=== PATIENT | female | born 1945 | race Caucasian/White ===

== ENCOUNTER 2018-06-27 12:11 | Inpatient (IN) | payer SELFPAY ==
[~2018-06-27] VITALS: Ht 147.3 cm; Wt 49.9 kg
[2018-06-27 12:19] VITALS: BP 100/54
[2018-06-27] MEDS ORDERED: NACL 0.9% 1,000 ML IV ONE (12:20)
[2018-06-27] MEDS ORDERED: cefTRIAXone 1,000 MG VIAL ONE (12:49)
[2018-06-27 13:15] LABS: BASOPHILS % (AUTO) 0.4 % (0.0-2.0); EOSINOPHILS # (AUTO) 0.1 K/uL (0-0.4); EOSINOPHILS % (AUTO) 1.5 % (0.0-4.0); HEMATOCRIT 34.4 % (36-48); HEMOGLOBIN 10.9 g/dL (12.0-16.0); LYMPHOCYTES # (AUTO) 0.5 K/uL (2.5-16.5); LYMPHOCYTES % (AUTO) 10.6 % (20.5-51.1); MEAN CORPUSCULAR HEMOGLOBIN 28 pg (27-31); MEAN CORPUSCULAR HGB CONC 32 g/dL (33-37); MEAN CORPUSCULAR VOLUME 86.8 fL (80-94); MONOCYTES # (AUTO) 0.3 K/uL (0.8-1.0); MONOCYTES % (AUTO) 7.2 % (1.7-9.3); NEUTROPHILS # (AUTO) 3.8 K/uL (1.8-7.7); NEUTROPHILS % (AUTO) 80.3 % (42.2-75.2); PLATELET COUNT (AUTO) 72 K/uL (140-450); RED BLOOD CELL COUNT(AUTO) 3.96 MIL/uL (4.20-5.40); RED CELL DISTRIBUTION WIDTH 19.8 % (11.6-13.7); WHITE BLOOD COUNT (AUTO) 4.8 K/uL (4.8-10.8)
[2018-06-27 13:21] LABS: APPEARANCE,URINE CLEAR (CLEAR); BILIRUBIN,URINE 1+ (NEGATIVE); BLOOD, URINE NEGATIVE (NEGATIVE); COLOR,URINE YELLOW (YELLOW); LEUKOCYTE ESTERASE ,URINE NEGATIVE (NEGATIVE); NITRITE, URINE NEGATIVE (NEGATIVE); PH,URINE 6.5 (5.0-9.0); UGLUCOSE NEGATIVE (NEGATIVE)
[2018-06-27 13:25] LABS: CARBON DIOXIDE 26.8 mmol/L (21-32); CHLORIDE 111 mmol/L (98-107); CREATININE 0.6 mg/dL (0.6-1.3); GLUCOSE 112 mg/dL (74-106); POTASSIUM 3.8 mmol/L (3.5-5.1); SODIUM SERUM 142 mmol/L (136-145); UREA NITROGEN, BLOOD 22 mg/dL (7-18)
[2018-06-27 13:28] LABS: PROTHROMBIN TIME 15.1 secs (10.8-13.4)
[2018-06-27 13:32] LABS: ALBUMIN 2.4 g/dL (3.4-5.0); ASPARTATE AMINOTRANSFERASE 31 U/L (15-37); TOTAL BILIRUBIN 0.8 mg/dL (0.0-1.0)
[2018-06-27] MEDS ORDERED: LORazepam 2 MG/ML VIAL IM/IVP PRN (15:00)
[2018-06-27] MEDS ORDERED: MORPHINE SULFATE 2 MG/ML SYR IVP PRN (15:00)
[2018-06-27] MEDS ORDERED: ZOLPIDEM 5 MG TAB PO PRN (15:00)
[2018-06-27] MEDS ORDERED: ACETAMINOPHEN 325 MG TAB PO PRN (15:00)
[2018-06-27] MEDS ORDERED: DOCUSATE SODIUM 100 MG GELCAP PO PRN (15:00)
[2018-06-27] MEDS ORDERED: ONDANSETRON 4 MG/2 ML VIAL IM/IVP PRN (15:00)
[2018-06-27] MEDS ORDERED: HYDROcodone/APAP 5/325 MG 1 TAB TAB PO PRN (15:00)
[2018-06-27] MEDS ORDERED: ALBUTEROL SULFATE/IPRATROPIU 3 ML SOL IH PRN (15:55)
[2018-06-27 16:00] VITALS: BP 115/44
[2018-06-27 16:08] LABS: BARBITURATE, URINE NEG. ng/ml (NEG <=200); BENZODIAZEPINE, URINE NEG. ng/mL (NEG <=200); CANNABINOID, URINE NEG. ng/mL (NEG <=50); COCAINE, URINE NEG. ng/mL (NEG <=300); OPIATE, URINE NEG. ng/mL (NEG <=2000)
[2018-06-27 16:21] LABS: PHENCYCLIDINE SCREEN,URINE NEGATIVE ng/mL (NEG <=25)
[2018-06-27 16:24] LABS: MAGNESIUM 1.7 mg/dL (1.8-2.4); PHOSPHORUS 2.8 mg/dL (2.5-4.9); THYROID STIMULATING HORMONE 0.08 uIU/mL (0.34-3.74)
[2018-06-27] MEDS ORDERED: ATROPINE 0.4 MG/ML VIAL IVP SCH (16:34)
[2018-06-27] MEDS ORDERED: ATROPINE 0.5 MG/5 ML SYR IVP SCH ×2 (16:35→17:30)
[2018-06-27] MEDS ORDERED: ATROPINE 1 MG/10 ML SYR IVP SCH (17:34)
[2018-06-27] MEDS: DEXT 5% / NACL 0.45% 1,000 ML IV SCH (17:38)
[2018-06-27] MEDS: ALBUTEROL SULFATE/IPRATROPIU 3 ML SOL IH SCH (18:51)
[2018-06-27 20:00] VITALS: BP 104/65
[2018-06-27] MEDS ORDERED: MAG SULF 2000 MG/WATER PREMIX 50 ML IV SCH (21:00)
[2018-06-28] VITALS: BP 125/50
[2018-06-28 04:00] VITALS: BP 145/55
[2018-06-28] MEDS: DEXT 5% / NACL 0.45% 1,000 ML IV SCH (07:39)
[2018-06-28 08:00] VITALS: BP 145/66
[2018-06-28 08:22] LABS: T4 (THYROXINE) 8.4 ug/dL (4.5-12.0)
[2018-06-28 08:47] LABS: HEMATOCRIT 29.8 % (36-48); HEMOGLOBIN 9.9 g/dL (12.0-16.0); MEAN CORPUSCULAR HEMOGLOBIN 29 pg (27-31); MEAN CORPUSCULAR HGB CONC 33 g/dL (33-37); MEAN CORPUSCULAR VOLUME 85.8 fL (80-94); PLATELET COUNT (AUTO) 70 K/uL (140-450); RED BLOOD CELL COUNT(AUTO) 3.47 MIL/uL (4.20-5.40); RED CELL DISTRIBUTION WIDTH 19.3 % (11.6-13.7); WHITE BLOOD COUNT (AUTO) 4.4 K/uL (4.8-10.8)
[2018-06-28] MEDS: ALBUTEROL SULFATE/IPRATROPIU 3 ML SOL IH SCH ×3 (08:47→20:13)
[2018-06-28 09:06] LABS: CHOL/HDL RATIO 3.9 (1-4.5)
[2018-06-28] MEDS ORDERED: DIGO0.122 PO (09:39)
[2018-06-28] MEDS ORDERED: CARV12.5 PO (09:39)
[2018-06-28] MEDS ORDERED: DABI150C PO (09:39)
[2018-06-28] MEDS ORDERED: DILT60TA97 PO (09:39)
[2018-06-28] MEDS: DABIGATRAN ETEXILATE MESYLAT 75 MG CAP PO SCH ×2 (12:40→21:00)
[2018-06-28] MEDS: DIGOXIN 0.125 MG TAB PO SCH (12:40)
[2018-06-28] MEDS ORDERED: DABIGATRAN ETEXILATE MESYLAT 75 MG CAP PO SCH ×2 (12:50→21:00)
[2018-06-28] MEDS ORDERED: CARVEDILOL 12.5 MG TAB PO SCH ×2 (12:50→21:00)
[2018-06-28] MEDS ORDERED: DIGOXIN 0.125 MG TAB PO SCH (12:50)
[2018-06-28] MEDS ORDERED: DILTIAZEM 60 MG TAB PO SCH ×2 (12:55→21:00)
[2018-06-28] MEDS: CARVEDILOL 12.5 MG TAB PO SCH ×2 (13:09→20:40)
[2018-06-28] MEDS: DILTIAZEM 60 MG TAB PO SCH ×2 (13:10→20:40)
[2018-06-28 13:45] VITALS: BP 147/76
[2018-06-28 13:52] LABS: LYMPHOCYTES % (MANUAL) 9 % (20-46); MONOCYTES % (MANUAL) 4 % (5-12)
[2018-06-28 16:00] VITALS: BP 128/65
[2018-06-28] MEDS ORDERED: LACTULOSE 20 GM/30 ML UDC PO ONE (16:55)
[2018-06-28 19:21] LABS: PHOSPHORUS 2.4 mg/dL (2.5-4.9)
[2018-06-28 19:23] LABS: CARBON DIOXIDE 25.3 mmol/L (21-32); CHLORIDE 110 mmol/L (98-107); CREATININE 0.4 mg/dL (0.6-1.3); GLUCOSE 115 mg/dL (74-106); POTASSIUM 3.3 mmol/L (3.5-5.1); SODIUM SERUM 141 mmol/L (136-145); UREA NITROGEN, BLOOD 13 mg/dL (7-18)
[2018-06-28 20:00] VITALS: BP 138/62
[2018-06-29] VITALS: BP 142/71
[2018-06-29] MEDS: DEXT 5% / NACL 0.45% 1,000 ML IV SCH ×2 (00:19→04:15)
[2018-06-29 04:00] VITALS: BP 156/76
[2018-06-29] MEDS ORDERED: CALCIUM ACETATE 667 MG TAB PO ONE (06:40)
[2018-06-29] MEDS ORDERED: KCL 20 MEQ/WATER INJ PREMIX 100 ML IV SCH (07:00)
[2018-06-29 07:35] LABS: BASOPHILS % (AUTO) 0.8 % (0.0-2.0); EOSINOPHILS # (AUTO) 0.1 K/uL (0-0.4); EOSINOPHILS % (AUTO) 2.9 % (0.0-4.0); HEMATOCRIT 28.6 % (36-48); HEMOGLOBIN 9.5 g/dL (12.0-16.0); LYMPHOCYTES # (AUTO) 0.9 K/uL (2.5-16.5); LYMPHOCYTES % (AUTO) 22.1 % (20.5-51.1); MEAN CORPUSCULAR HEMOGLOBIN 28 pg (27-31); MEAN CORPUSCULAR HGB CONC 33 g/dL (33-37); MEAN CORPUSCULAR VOLUME 85.1 fL (80-94); MONOCYTES # (AUTO) 0.3 K/uL (0.8-1.0); MONOCYTES % (AUTO) 7.2 % (1.7-9.3); NEUTROPHILS # (AUTO) 2.8 K/uL (1.8-7.7); PLATELET COUNT (AUTO) 75 K/uL (140-450); RED BLOOD CELL COUNT(AUTO) 3.36 MIL/uL (4.20-5.40); RED CELL DISTRIBUTION WIDTH 18.6 % (11.6-13.7); WHITE BLOOD COUNT (AUTO) 4.2 K/uL (4.8-10.8)
[2018-06-29 07:38] LABS: MAGNESIUM 1.5 mg/dL (1.8-2.4); PHOSPHORUS 2.3 mg/dL (2.5-4.9)
[2018-06-29 07:49] LABS: ANION GAP 12.9 (8-16); CARBON DIOXIDE 23.4 mmol/L (21-32); CHLORIDE 107 mmol/L (98-107); CREATININE 0.4 mg/dL (0.6-1.3); GLUCOSE 98 mg/dL (74-106); POTASSIUM 3.3 mmol/L (3.5-5.1); SODIUM SERUM 140 mmol/L (136-145); UREA NITROGEN, BLOOD 10 mg/dL (7-18)
[2018-06-29 08:00] VITALS: BP 145/77
[2018-06-29] MEDS: CARVEDILOL 12.5 MG TAB PO SCH ×2 (08:17→21:40)
[2018-06-29] MEDS: DILTIAZEM 60 MG TAB PO SCH ×2 (08:17→21:40)
[2018-06-29] MEDS ORDERED: SODIUM PHOS / POTASSIUM PHOS 1 PKT PDR PO SCH (08:25)
[2018-06-29] MEDS: ALBUTEROL SULFATE/IPRATROPIU 3 ML SOL IH SCH ×3 (08:27→19:59)
[2018-06-29] MEDS: DABIGATRAN ETEXILATE MESYLAT 75 MG CAP PO SCH ×2 (09:00→21:39)
[2018-06-29] MEDS ORDERED: DIGOXIN 0.125 MG TAB PO SCH (09:00)
[2018-06-29] MEDS: DIGOXIN 0.125 MG TAB PO SCH (09:05)
[2018-06-29] MEDS ORDERED: KCL 20 MEQ/WATER INJ PREMIX 100 ML IV ONE (10:45)
[2018-06-29] MEDS ORDERED: MAG SULF 2000 MG/WATER PREMIX 50 ML IV ONE (10:50)
[2018-06-29] MEDS: NACL 0.9% 1,000 ML IV SCH (11:41)
[2018-06-29 13:00] VITALS: BP 143/70
[2018-06-29 16:00] VITALS: BP 127/69
[2018-06-29 21:16] VITALS: BP 127/83
[2018-06-30] VITALS (7 sets, daily range): BP systolic 133–169; BP diastolic 42–80
[2018-06-30] MEDS: NACL 0.9% 1,000 ML IV SCH ×2 (03:25→20:05)
[2018-06-30] MEDS: ALBUTEROL SULFATE/IPRATROPIU 3 ML SOL IH SCH ×3 (07:39→19:37)
[2018-06-30 08:32] LABS: BASOPHILS % (AUTO) 0.7 % (0.0-2.0); EOSINOPHILS % (AUTO) 1.5 % (0.0-4.0); HEMATOCRIT 32.8 % (36-48); HEMOGLOBIN 10.6 g/dL (12.0-16.0); LYMPHOCYTES # (AUTO) 0.9 K/uL (2.5-16.5); LYMPHOCYTES % (AUTO) 27.2 % (20.5-51.1); MEAN CORPUSCULAR HEMOGLOBIN 28 pg (27-31); MEAN CORPUSCULAR HGB CONC 32 g/dL (33-37); MEAN CORPUSCULAR VOLUME 85.6 fL (80-94); MONOCYTES # (AUTO) 0.3 K/uL (0.8-1.0); MONOCYTES % (AUTO) 8.2 % (1.7-9.3); NEUTROPHILS % (AUTO) 62.4 % (42.2-75.2); PLATELET COUNT (AUTO) 80 K/uL (140-450); RED BLOOD CELL COUNT(AUTO) 3.84 MIL/uL (4.20-5.40); RED CELL DISTRIBUTION WIDTH 20.2 % (11.6-13.7); WHITE BLOOD COUNT (AUTO) 3.1 K/uL (4.8-10.8)
[2018-06-30] MEDS: DABIGATRAN ETEXILATE MESYLAT 75 MG CAP PO SCH ×2 (09:00→21:00)
[2018-06-30] MEDS: DIGOXIN 0.125 MG TAB PO SCH (09:00)
[2018-06-30 09:32] LABS: ANION GAP 11.3 (8-16); CHLORIDE 108 mmol/L (98-107); CREATININE 0.7 mg/dL (0.6-1.3); GLUCOSE 92 mg/dL (74-106); POTASSIUM 3.3 mmol/L (3.5-5.1); SODIUM SERUM 141 mmol/L (136-145); UREA NITROGEN, BLOOD 14 mg/dL (7-18)
[2018-06-30 09:42] LABS: MAGNESIUM 1.6 mg/dL (1.8-2.4); PHOSPHORUS 2.1 mg/dL (2.5-4.9)
[2018-06-30] MEDS: DILTIAZEM 60 MG TAB PO SCH ×2 (10:17→21:26)
[2018-06-30] MEDS: CARVEDILOL 12.5 MG TAB PO SCH ×2 (10:17→21:26)
[2018-06-30] MEDS ORDERED: SODIUM PHOS / POTASSIUM PHOS 1 PKT PDR PO SCH (13:00)
[2018-06-30] MEDS ORDERED: MAG SULF 2000 MG/WATER PREMIX 50 ML IV SCH (13:00)
[2018-06-30] MEDS: HYDRAGUARD CREAM TP SCH (13:53)
[2018-06-30] MEDS ORDERED: KCL 20 MEQ/WATER INJ PREMIX 100 ML IV SCH (15:00)
[2018-07-01] MEDS: HYDRAGUARD CREAM TP SCH ×2 (01:00→12:54)
[2018-07-01 04:00] VITALS: BP 139/73
[2018-07-01] MEDS: NACL 0.9% 1,000 ML IV SCH ×2 (05:05→12:45)
[2018-07-01] MEDS: ALBUTEROL SULFATE/IPRATROPIU 3 ML SOL IH SCH ×2 (06:38→13:00)
[2018-07-01 06:45] LABS: BASOPHILS % (AUTO) 0.3 % (0.0-2.0); EOSINOPHILS % (AUTO) 1.8 % (0.0-4.0); HEMATOCRIT 28.3 % (36-48); HEMOGLOBIN 9.4 g/dL (12.0-16.0); LYMPHOCYTES # (AUTO) 0.9 K/uL (2.5-16.5); MEAN CORPUSCULAR HEMOGLOBIN 28 pg (27-31); MEAN CORPUSCULAR HGB CONC 33 g/dL (33-37); MEAN CORPUSCULAR VOLUME 84.2 fL (80-94); MONOCYTES # (AUTO) 0.3 K/uL (0.8-1.0); MONOCYTES % (AUTO) 12.2 % (1.7-9.3); NEUTROPHILS # (AUTO) 1.4 K/uL (1.8-7.7); NEUTROPHILS % (AUTO) 52.7 % (42.2-75.2); PLATELET COUNT (AUTO) 88 K/uL (140-450); RED BLOOD CELL COUNT(AUTO) 3.36 MIL/uL (4.20-5.40); RED CELL DISTRIBUTION WIDTH 19.5 % (11.6-13.7); WHITE BLOOD COUNT (AUTO) 2.7 K/uL (4.8-10.8)
[2018-07-01 08:00] VITALS: BP 153/56
[2018-07-01 08:33] LABS: ANION GAP 9.9 (8-16); CHLORIDE 107 mmol/L (98-107); POTASSIUM 3.9 mmol/L (3.5-5.1); SODIUM SERUM 140 mmol/L (136-145); UREA NITROGEN, BLOOD 19 mg/dL (7-18)
[2018-07-01 08:38] LABS: MAGNESIUM 1.7 mg/dL (1.8-2.4); PHOSPHORUS 2.1 mg/dL (2.5-4.9)
[2018-07-01] MEDS: DABIGATRAN ETEXILATE MESYLAT 75 MG CAP PO SCH (09:00)
[2018-07-01 09:18] LABS: GLUCOSE 106 mg/dL (74-106)
[2018-07-01] MEDS: DIGOXIN 0.125 MG TAB PO SCH (09:36)
[2018-07-01] MEDS: DILTIAZEM 60 MG TAB PO SCH (09:37)
[2018-07-01] MEDS ORDERED: SODIUM PHOS / POTASSIUM PHOS 1 PKT PDR PO SCH (10:00)
[2018-07-01] MEDS ORDERED: MAG SULF 2000 MG/WATER PREMIX 50 ML IV SCH (10:00)
[2018-07-01] MEDS ORDERED: ALBU2.5V IH (10:52)
[2018-07-01] MEDS ORDERED: APIX5TAB PO (10:55)
[2018-07-01 12:00] VITALS: BP 156/86
[2018-07-01] MEDS ORDERED: KCL 20 MEQ/WATER INJ PREMIX 100 ML IV SCH (12:00)
== END 2018-07-01 15:20 | disposition home or self-care (01) | DRG 190 ==
LOC: EDBD 12:11 → MED 12:11 → MTU 15:04
PROVIDERS: ADMIT Family Medicine; ATTEND Family Medicine
DX: J44.1 Chronic obstructive pulmonary disease with (acute) exacerbation (principal); N17.0 Acute kidney failure with tubular necrosis; E43 Unspecified severe protein-calorie malnutrition; J98.11 Atelectasis; I69.351 Hemiplegia and hemiparesis following cerebral infarction affecting right dominant side; E83.42 Hypomagnesemia; E11.9 Type 2 diabetes mellitus without complications; I10 Essential (primary) hypertension; E78.00 Pure hypercholesterolemia, unspecified; M81.0 Age-related osteoporosis without current pathological fracture; E87.8 Other disorders of electrolyte and fluid balance, not elsewhere classified; E83.51 Hypocalcemia; E05.90 Thyrotoxicosis, unspecified without thyrotoxic crisis or storm; R13.10 Dysphagia, unspecified; E87.6 Hypokalemia; E83.39 Other disorders of phosphorus metabolism; R47.1 Dysarthria and anarthria; Z74.01 Bed confinement status; Z95.5 Presence of coronary angioplasty implant and graft; Z79.899 Other long term (current) drug therapy; Z83.3 Family history of diabetes mellitus; Z82.49 Family history of ischemic heart disease and other diseases of the circulatory system; Z68.23 Body mass index [BMI] 23.0-23.9, adult
CPT/HCPCS: 36415; 36600; 71045; 80048; 80053; 80305; 81003; 82150; 82550; 82553; 82803; 83036; 83605; 83690; 83735; 83874; 83880; 84100; 84134; 84436; 84443; 84484; 85025; 85610; 85730; 87040; 87081; 87086; 92610; 93005; 94640; 94667; 96365; 97110; 97140; 97799; 99285; J0461; J0696; J3475; J3480; J7030; J7620; Q0092